=== PATIENT | male | born 1985 | race Caucasian/White ===

== ENCOUNTER 2016-12-28 12:00 | Inpatient (IN) | payer OTHER ==
[~2016-12-28] VITALS: Ht 185.4 cm; Wt 131.5 kg
--- NOTE | ~2016-12-28 | PN ---
Unit #: [id number] #: [id number] Patient: CE LOPEZ [id number] [facility] [address] [place] [address] [id number] MR#: [id number] NAME: CE LOPEZ ROOM: P130 Age: 31 Sex: M Admission Date: 12/28/2016 : 1985 Attending Physician: Eddie Adams M.D. Admitting Physician: Eddie Adams M.D. Primary Care Physician: Generic Doctor Not In System [facility] PROGRESS NOTES DATE OF SERVICE 01/01/2017 DISCUSSION Mr. Ramirez is a 31-year-old male seen on 01/01/2017. The patient interviewed, chart reviewed. Obtained information from nursing staff. The patient's behavior continues to be bizarre, guarded, paranoid, mood lability, irritability, disruptive, impulsive, yelling. Complete Review of Systems: Unremarkable. MENTAL STATUS EXAMINATION General Appearance: The patient dressed casually. Attention span, concentration: Poor. Oriented in place and person. Mood and affect labile. Speech: Monotone. Thought process: Kinder. The patient denied any thoughts of harming self or others or any psychotic symptom. Recent and remote memory: Poor. Insight and judgment: Poor. DIAGNOSIS Schizoaffective disorder bipolar type. ASSESSMENT/PLAN Advised to continue with current medication and therapeutic protocol. If needed, consider further adjustment of medication such as increasing Risperdal. Dictated by... Terrance Jean/juli TD: 01/02/2017 10:58 JOB #: [id number] Unit #: [id number] #: [id number] Patient: CE LOPEZ [facility] PROGRESS NOTES Page 1 of 1 X Raj Correa MD PROGRESS NOTE
--- NOTE | ~2016-12-28 | PN ---
Unit #: [id number] #: [id number] Patient: CE CANNON [id number] [facility] [address] [place] [address] [id number] MR#: [id number] NAME: CE CANNON ROOM: P130 Age: 31 Sex: M Admission Date: 12/28/2016 : 1985 Attending Physician: Eddie Adams M.D. Admitting Physician: Eddie Adams M.D. Primary Care Physician: Generic Doctor Not In System [facility] PROGRESS NOTES DATE 12/30/2016 DISCUSSION Mr. Cannon is a 31-year-old, white male who was seen today and chart was reviewed and case was discussed with the staff. He remains irritable, impulsive, disorganized and in a manic phase and unable to carry on meaningful conversation. Meanwhile, he has been taking the medications and tolerating them fairly well with no reported side effects. MENTAL STATUS EXAM Young white male who was casually dressed with fair personal hygiene, appears to be in no acute distress or discomfort. He was awake and alert on interaction with intact orientation. His mood was anxious with congruent affect. His speech was slow and goal directed. He denies any suicidal or homicidal ideation. Also, denies any auditory or visual hallucinations. His insight and judgement remains significantly impaired. TREATMENT PLAN 1. We will continue him on his current medications and treatment protocol. We will monitor his response and make further adjustments as needed. 2. We will continue to follow up. Dictated by... Terrance Zamora/leandro TD: 12/31/2016 23:46 JOB #: [id number] Unit #: [id number] #: [id number] Patient: CE CANNON [facility] PROGRESS NOTES Page 1 of 1 X Eddie Adams MD PROGRESS NOTE
--- NOTE | ~2016-12-28 | HP ---
Unit #: [id number] #: [id number] Patient: CE LOPEZ [id number] [facility] [address] [place] [address] [id number] I MR#: [id number] NAME: CE LOPEZ ROOM: P130 Age: 31 Sex: M Admission Date: 12/28/2016 : 1985 Attending Physician: Eddie Adams M.D. Admitting Physician: Eddie Adams M.D. Primary Care Physician: Generic Doctor Not In System HISTORY AND PHYSICAL HISTORY OF PRESENT ILLNESS The patient is a 31-year-old man who [facility] ideations and substance abuse. PAST MEDICAL HISTORY 1. Polysubstance abuse. 2. Multiple sclerosis diagnosed in September of 2012. PAST SURGICAL HISTORY None. ALLERGIES Neurontin. HOME MEDICATIONS None. FAMILY HISTORY Medically noncontributory. SOCIAL HISTORY The patient endorses tobaccoism, opioid and amphetamine abuse. REVIEW OF SYSTEMS CONSTITUTIONAL: Denies fever or chills. HEENT: Denies sore throat, ear pain, or runny nose. CARDIOVASCULAR: Denies chest pain, irregular heart rhythm, or palpitations. CHEST: Denies shortness of breath or cough. No hemoptysis. GI: Denies nausea, vomiting, diarrhea, or (1) __. ENDOCRINE: Denies increased thirst or urination. Denies any recent weight loss or gain. : Denies dysuria, frequency, or hematuria. SKIN: Denies any rashes. HEMATOLOGIC: Denies history of increased bleeding or bruising. MUSCULOSKELETAL: Denies any hot, swollen joints. No generalized muscle pain. NEUROLOGIC: Denies any problems with speech, vision, numbness, or tingling. Denies any loss of bowel or bladder control. PHYSICAL EXAMINATION GENERAL: The patient is awake, alert, in no acute distress. VITAL SIGNS: Temperature 98.3, heart rate 85, respirations 16, blood Unit #: [id number] #: [id number] Patient: CE LOPEZ pressure 157/97. HEIGHT: 6 feet 1. WEIGHT: 290 pounds. HEENT: Head is atraumatic, normocephalic. Pupils are equal, round, and reactive. Extraocular movements are intact. No drainage from ears or nose. NECK: Supple. Trachea is midline. HEART: Regular rate and rhythm. LUNGS: Clear. ABDOMEN: Soft, nontender, nondistended. : Not done. SKIN: Warm, dry without any rashes or lesions. EXTREMITIES: No clubbing, cyanosis, or edema. NEUROLOGIC: Cranial nerves II through XII are intact. No focal deficits. Sensory and motor function: Grossly normal. Moves all extremities well. Coordination: Gait normal. Deep tendon reflexes intact. IMPRESSION Psychiatric admission. RECOMMENDATIONS PSYCHIATRIC: Per psychiatrist. MEDICAL: I see no contraindication to participate in this facility activities. MEDICAL PROGNOSIS Fair. MEDICAL CONDITION Stable. Dictated by... Nicholas Herrera TD: 12/29/2016 11:29 JOB #: [id number] HISTORY AND PHYSICAL Page 1 of 1 X Sherley Caicedo APRN X HISTORY AND PHYSICAL
--- NOTE | ~2016-12-28 | PN ---
Unit #: [id number] #: [id number] Patient: CE LOPEZ [id number] [facility] [address] [place] [address] [id number] MR#: [id number] NAME: CE LOPEZ ROOM: P130 Age: 31 Sex: M Admission Date: 12/28/2016 : 1985 Attending Physician: Eddie Adams M.D. Admitting Physician: Eddie Adams M.D. Primary Care Physician: Generic Doctor Not In System [facility] PROGRESS NOTES DATE OF SERVICE 01/03/2017 DISCUSSION Mr. Ramirez is a 31-year-old male seen on 01/03/2017. The patient interviewed, chart reviewed. Obtained information from nursing staff. The patient's behavior was bizarre, aggressive, impulsive, needing p.r.n. Haldol, Cogentin, Ativan yesterday. The patient's behavior was gamey, impulsive, attention-seeking, mood lability. Needing multiple redirections. Complete Review of Systems: Unremarkable. MENTAL STATUS EXAMINATION General Appearance: The patient dressed casually in the hospital attire. Attention span, concentration: Poor. Oriented in place and person. Mood and affect labile. Speech: Rapid. Thought process: Circumstantial. The patient denied any thoughts of harming self or others but bizarre behavior. Aggressive, impulsive. Recent and remote memory: Poor. Insight and judgment: Poor. DIAGNOSIS Schizoaffective disorder bipolar type. ASSESSMENT/PLAN Advised to continue with current medication and therapeutic protocol. If needed, consider further adjustment of medication. Dictated by... Terrance Jean/juli TD: 01/04/2017 07:06 JOB #: [id number] Unit #: [id number] #: [id number] Patient: CE LOPEZ [facility] PROGRESS NOTES Page 1 of 1 X Raj Correa MD PROGRESS NOTE
--- NOTE | ~2016-12-28 | CO ---
Unit #: [id number] #: [id number] Patient: CE LOPEZ [id number] [place] [address] [id number] MR#: [id number] NAME: CE LOPEZ ROOM: P130 Age: 31 Sex: M Admission Date: 12/28/2016 : 1985 Attending Physician: Eddie Adams M.D. Primary Care Physician: Generic Doctor Not In System Consultation Date: 12/29/2016 CONSULTATION REPORT REASON FOR CONSULTATION Blister on left foot. SUBJECTIVE The patient states that he has had blister on his left foot for a couple of weeks. He denies any pain. The patient is able to ambulate without difficulty. OBJECTIVE GENERAL: The patient is a 31-year-old male, who is awake, alert, in no acute distress. VITAL SIGNS: Stable. CHEST: Lungs clear. CARDIOVASCULAR: S1, S2. EXTREMITIES: No clubbing, edema, or cyanosis. The patient has a dry blister on the bottom of his left foot. No signs or symptoms of infection. No drainage. ASSESSMENT Blister on left foot. PLAN At this time, we will ask the patient to keep the blister dry and will keep it open to air. No other intervention at this time. Please re-consult if needed. Dictated by... Sherley Caicedo A.P.R.N. for [facility] Rose M.D. AM/cornel TD: 12/29/2016 12:03 JOB #: [id number] Unit #: [id number] #: [id number] Patient: CE LOPEZ CONSULTATION REPORT Page 1 of 1 X Sherley Caicedo APRN X CONSULTATION REPORT
--- NOTE | ~2016-12-28 | PN ---
Unit #: [id number] #: [id number] Patient: CE LOPEZ [id number] [facility] [address] [place] [address] [id number] MR#: [id number] NAME: CE LOPEZ ROOM: P130 Age: 31 Sex: M Admission Date: 12/28/2016 : 1985 Attending Physician: Eddie Adams M.D. Admitting Physician: Eddie Adams M.D. Primary Care Physician: Generic Doctor Not In System [facility] PROGRESS NOTES DATE 12/31/2016 DISCUSSION Mr. Ramirez is a 31-year-old male, seen on 12/31/2016. The patient interviewed, chart reviewed, and obtained information from the nursing staff. The patient continues to be guarded, disorganized, paranoid, mood lability. The patient tolerating medication fairly well, behavior was impulsive, bizarre behavior, sexually inappropriate with staff, needing redirection. REVIEW OF SYSTEMS Complete review of systems unremarkable. MENTAL STATUS EXAMINATION General appearance: Patient dressed casually. Attention span and concentration, poor. Oriented in place and person. Mood and affect, labile. Speech, rapid. Thought process, circumstantial. The patient guarded, paranoid, delusional, poor boundaries. Recent and remote memory, poor. Insight and judgment, poor. DIAGNOSIS Schizoaffective disorder, bipolar type. ASSESSMENT/PLAN Advised to continue with the current medication and therapeutic protocol, and if needed consider further adjustment of medication. Dictated by... Terrance Jean/luke TD: 01/02/2017 09:33 JOB #: [id number] Unit #: [id number] #: [id number] Patient: CE LOPEZ [facility] PROGRESS NOTES Page 1 of 1 X Raj Correa MD PROGRESS NOTE
--- NOTE | ~2016-12-28 | PN ---
Unit #: [id number] #: [id number] Patient: CE CANNON [id number] [facility] [address] [place] [address] [id number] MR#: [id number] NAME: CE CANNON ROOM: P130 Age: 31 Sex: M Admission Date: 12/28/2016 : 1985 Attending Physician: Eddie Adams M.D. Admitting Physician: Eddie Adams M.D. Primary Care Physician: Generic Doctor Not In System [facility] PROGRESS NOTES DATE 12/29/2016 DISCUSSION Mr. Cannon is a 31-year-old, white male who was seen today and chart was reviewed and case was discussed with the staff. He has been anxious, withdrawn and rather seclusive to himself and has been seen to be agitated, irritable and had a very rough day yesterday with aggression, hostility requiring intramuscular injection and remains manic and aggressive and hostile with significant paranoia and rambling speech and has been difficult to be redirected. MENTAL STATUS EXAM Young white male who was casually dressed with fair personal hygiene, appears to be in no acute distress or discomfort. He was awake and alert with impaired attention and concentration. His mood was anxious with congruent affect. His speech was fluent to tangential. His thought processes were disorganized with some looseness of associations and flight of ideas and paranoid ideations and delusional behavior. His insight and judgement remains significantly impaired. TREATMENT PLAN 1. We will continue his current medications and treatment protocol and we will adjust the medication and monitor response. 2. We will continue to follow up. Dictated by... Terrance Zamora/leandro TD: 12/31/2016 02:58 JOB #: [id number] Unit #: [id number] #: [id number] Patient: CE CANNON [facility] PROGRESS NOTES Page 1 of 1 X Eddie Adams MD X PROGRESS NOTE
--- NOTE | ~2016-12-28 | DS ---
Unit #: [id number] #: [id number] Patient: CE CANNON [id number] [facility] [place] [address] [id number] I MR#: [id number] NAME: CE CANNON ROOM: P130 Age: 31 Sex: M Admission Date: 12/28/2016 : 1985 Discharge Date: 01/04/2017 Attending Physician: Eddie Adams M.D. Primary Care Physician: Generic Doctor Not In System DISCHARGE SUMMARY IDENTIFICATION DATA Mr. Cannon is a 31-year-old single white male who was a resident of [place], [place], and was self-referred to the hospital. CHIEF COMPLAINT DISCHARGE DIAGNOSES PSYCHIATRIC: Schizoaffective disorder, bipolar type, most recent episode, depressed, recurrent, moderate, with psychosis. Methamphetamine abuse, moderate. MEDICAL: None. STRESSORS: Mild psychosocial stressors. HISTORY OF PRESENT ILLNESS Same as in initial psychiatric evaluation. PAST PSYCHIATRIC HISTORY Same as in initial psychiatric evaluation. PAST MEDICAL HISTORY Same as in initial psychiatric evaluation. HOSPITAL COURSE The patient was admitted to the adult psychiatric unit at [facility] and was oriented to the hospital environment. Routine p.r.n. medications were initiated, and upon initial presentation the patient was seen to be acutely psychotic, manic, agitated, aggressive, and hostile requiring p.r.n. medications. As such, Risperdal and Depakote were initiated, and he was closely monitored. He was taking the medications regularly and was tolerating them fairly well and was able to show a fairly decent therapeutic response and was asking to go home and was denying any suicidal or homicidal ideations and was not seen to be a danger to self or anyone else and was not meeting criteria for further involuntary psychiatric hospitalization. As such it was decided that he will be discharged home. We will continue treatment on outpatient basis. DISCHARGE MEDICATIONS 1. Depakote 500 mg 3 times a day for bipolar. 2. Risperdal 1 mg twice a day for bipolar. CONDITION AT DISCHARGE Stable. Unit #: [id number] #: [id number] Patient: CE CANNON PROGNOSIS Fair. Dictated by... Terrance Zamora/juli TD: 01/04/2017 10:27 JOB #: [id number] DISCHARGE SUMMARY Page 1 of 1 X Eddie Adams MD DISCHARGE SUMMARY
--- NOTE | ~2016-12-28 | PN ---
Unit #: [id number] #: [id number] Patient: CE LOPEZ [id number] [facility] [address] [place] [address] [id number] MR#: [id number] NAME: CE LOPEZ ROOM: P130 Age: 31 Sex: M Admission Date: 12/28/2016 : 1985 Attending Physician: Eddie Adams M.D. Admitting Physician: Eddie Adams M.D. Primary Care Physician: Generic Doctor Not In System [facility] PROGRESS NOTES DATE OF SERVICE 01/02/2017 DISCUSSION Mr. Ramirez is a 31-year-old male seen on 01/02/2017. Patient interviewed, chart reviewed. Obtained information from nursing staff. Patient's behavior was bizarre, disorganized, guarded, paranoid, mood lability. Patient's behavior was disruptive, impulsive, yelling. Received a p.r.n. medication. Patient's vital signs stable. Still having bizarre behavior. Complete review of systems unremarkable. MENTAL STATUS EXAMINATION General appearance, patient dressed casually in hospital attire. Attention span and concentration poor. Oriented to place and person. Mood and affect labile. Speech disorganized. Thought process guarded paranoid. Recent and remote memory poor. Insight and judgement poor. DIAGNOSES Schizoaffective disorder bipolar type. ASSESSMENT/PLAN Advise to continue with current medication and therapeutic protocol as the patient is still having above mentioned behavior. Continue with the inpatient programming. If needed consider further adjustment of medication. Dictated by... Terrance Jean/leandro TD: 01/03/2017 04:51 JOB #: [id number] Unit #: [id number] #: [id number] Patient: CE LOPEZ [facility] PROGRESS NOTES Page 1 of 1 X Raj Correa MD X PROGRESS NOTE
--- NOTE | ~2016-12-28 | PA ---
Unit #: [id number] #: [id number] Patient: CE LOPEZ [id number] [facility] [address] [place] [address] [id number] MR#: [id number] NAME: CE LOPEZ ROOM: P130 Age: 31 Sex: M Admission Date: 12/28/2016 : 1985 Date of Assessment: Attending Physician: Eddie Adams M.D. Admitting Physician: Eddie Adams M.D. Primary Care Physician: Generic Doctor Not In System PSYCHIATRIC ASSESSMENT DATE OF SERVICE 12/28/2016. IDENTIFYING DATA Mr. Mercer is a 31-year-old single white male, who is a resident of [place], [place], and was self-referred to the hospital. CHIEF COMPLAINT "Schizophrenia, bipolar, voices, suicidal, meths." HISTORY OF PRESENT ILLNESS Mr. Mercer is a 31-year-old white male, who was brought to the hospital by his family. Upon presentation, reports that he has been diagnosed with schizophrenia, bipolar, and he has been decompensating. He has been having increasing mood swings, anger, agitation, irritability, and has been hearing voices, and he has been off his medication. He reports that he is on house arrest and needs a program, but did not want to go to [facility] and sees Zafar Matos again, put a meth in the baby's mouth, he will kill it. He stated Zafar is in a jeep, outside of the hospital, waiting on him and was mumbling about the [employer] and stated he was having homicidal thoughts and suicidal thoughts and presented with agitated, disorganized with pressured speech and flight of ideas, significant paranoia and delusional behavior, and was seen to be quite hostile and was talking in disorganized pattern. Whole time during evaluation was difficult to be redirected. His father stated the patient got out of the half-way Saturday and he was locked up for 2 weeks for trying to steal a forklift, and father stated that he goes up and down and he will be okay and then not and will become agitated and talk about suicide and homicide, and he gets violent and father had to call the police on the patient last night and took him to [facility], but they did not keep him, and the patient started talking about massacre and dope man and killing people. Father stated that the patient has a [id number] baby is in the home and he cannot let the patient be in that house due to the patient's quite compromised mental status and increasing agitation, hostility, and aggression. Father stated that his bizarre behavior began about 5 years ago and the patient has been diagnosed with bipolar disorder. The patient stated that he has been staying awake for days at a time and has been quite unstable and has history of poor compliance with medications. SUBSTANCE ABUSE HISTORY The patient denies any alcohol or drug abuse. Unit #: [id number] #: [id number] Patient: CE LOPEZ PAST PSYCHIATRIC HISTORY The patient has a history of multiple inpatient psychiatric hospitalizations at different facilities including [facility] and [facility] and has been diagnosed and treated for schizoaffective bipolar type, but has been noncompliant with medication and as such, has been decompensating. PAST MEDICAL HISTORY The patient's medical history is insignificant. ALLERGIES Gabapentin. CURRENT MEDICATIONS None. PERSONAL AND SOCIAL HISTORY This is a 31-year-old white male, who reports that he is single, unemployed, and lives at home with his family and has a [id number] baby in the house. MENTAL STATUS EXAMINATION This is a young white male, who was casually dressed with fair personal hygiene, appears to be in no acute distress or discomfort. He was awake and alert on interaction with intact orientation to time, place, and person. The patient's mood was anxious and depressed with a congruent affect. His speech was slow and restricted in content. His thought processes were disorganized with some looseness of associations, flight of ideas, paranoid ideations, and delusional behavior. His insight and judgment remain significantly impaired. DIAGNOSTIC IMPRESSION Psychiatric: Schizoaffective disorder, bipolar type, most recent episode of depressed, recurrent, moderate, with psychosis; methamphetamine abuse, moderate. Medical: None. Stressors: Moderate psychosocial stressors. TREATMENT PLAN 1. The patient has presented with history of chronic mental illness and has been decompensating and will need inpatient hospitalization for safety and stabilization. We will start him back on his home medications. We will adjust the medications and monitor response. 2. Supportive therapy was provided to the patient. 3. Safe, structured, and nourishing environment will be provided. ESTIMATED LENGTH OF STAY 5 to 7 days. ABILITY TO HELP SELF Limited. WILLINGNESS TO HELP SELF The patient appears to be willing to help self. STRENGTHS 1. Communicative. 2. Cooperative. PROBLEMS Unit #: [id number] #: [id number] Patient: CE LOPEZ 1. Chronic dysphoric symptoms. 2. Poor social support system. DISCHARGE CRITERIA This will be contingent upon the patient's ability to show resolution of his depression, anxiety, anali, and psychosis, and his ability to stay safe to himself, particularly after discharge from the hospital. Dictated by... Eddie Adams M.D. OTTONIEL/cornel TD: 12/29/2016 11:17 JOB #: [id number] PSYCHIATRIC ASSESSMENT Page 1 of 1 X Eddie Adams MD X PSYCHIATRIC ASSESSMENT
== END 2017-01-04 12:33 | disposition home or self-care (01) | DRG 885 ==
LOC: P1S 14:26
DX: F25.0 Schizoaffective disorder, bipolar type (principal); F15.20 Other stimulant dependence, uncomplicated; R45.851 Suicidal ideations; Z91.14 Patient's other noncompliance with medication regimen; Z88.8 Allergy status to other drugs, medicaments and biological substances; S90.822A Blister (nonthermal), left foot, initial encounter; X58.XXXA Exposure to other specified factors, initial encounter
CPT/HCPCS: J0515; J1630; J2060; J3230